=== PATIENT | female | born 1985 ===

== ENCOUNTER 2019-06-17 20:10 | Emergency (ER) | payer SELFPAY ==
[~2019-06-17] VITALS: Ht 162.5 cm; Wt 91.8 kg
--- NOTE | 2019-06-17 20:32 | ED GU-Female ---
General Stated Complaint: PREG 4-5 WKS - BLEEDING Source: patient Exam Limitations: no limitations History of Present Illness Date Seen by Provider: Jun 17, 2019 Time Seen by Provider: 20:31 Initial Comments To ER with reports of vaginal bleeding including clots starting today, she developed some abdominal cramping starting yesterday. She is at about 4-5 weeks . She was seen at [facility] today and had labs drawn, was told to come back on Friday for repeat blood draw. Timing/Duration: yesterday Severity/Quality: moderate Radiation: none Activities at Onset: none Associated Symptoms: denies symptoms Allergies and Home Medications Allergies Coded Allergies: No Known Drug Allergies (Unverified , 09/29/14) Home Medications No Active Prescriptions or Reported Meds Patient Home Medication List Home Medication List Reviewed: Yes Review of Systems Review of Systems Constitutional: see HPI EENTM: see HPI Respiratory: no symptoms reported Cardiovascular: no symptoms reported Genitourinary: no symptoms reported Musculoskeletal: no symptoms reported Skin: no symptoms reported Psychiatric/Neurological: No Symptoms Reported Endocrine: No Symptoms Reported Hematologic/Lymphatic: No Symptoms Reported Past Tfappkm-Yopsiq-Tmjujl Hx Patient Social History Recent Foreign Travel: No Contact w/Someone Who Travel: No Immunizations Up To Date Tetanus Booster (TDap): Unknown Date of Influenza Vaccine: Jul 04, 2014 Past Medical History Reproductive Disorders: No Female Reproductive Disorders: Denies Sexually Transmitted Disease: No HIV/AIDS: No Adverse Reaction/Blood Tranf: No Family Medical History Patient reports no known family medical history. Physical Exam Vital Signs Vital Signs - First Documented 06/17/19 20:26 Temp 36.8 Pulse 72 Resp 20 B/P (MAP) 147/93 (111) Pulse Ox 99 O2 Delivery Room Air Capillary Refill : Height, Weight, BMI Height: 5'4.00" Weight: 217lbs. oz. 98.055509mr; BMI Method: General Appearance: WD/WN, no apparent distress Respiratory: no respiratory distress, no accessory muscle use Gastrointestinal: normal bowel sounds, non tender, soft Extremities: normal range of motion, non-tender Neurologic/Psychiatric: alert, normal mood/affect, oriented x 3 Skin: normal color, warm/dry Progress/Results/Core Measures Suspected Sepsis SIRS Temperature: Pulse: Respiratory Rate: Laboratory Tests 06/17/19 20:40: White Blood Count 11.5H Blood Pressure / Mean: Laboratory Tests 06/17/19 20:40: Platelet Count 362 Results/Orders Lab Results Laboratory Tests Test 06/17/19 20:33 06/17/19 20:40 Range/Units Urine Color YELLOW Urine Clarity CLEAR Urine pH 7 5-9 Urine Specific [place] 1.015 L 1.016-1.022 Urine Protein 2+ H NEGATIVE Urine Glucose (UA) NEGATIVE NEGATIVE Urine Ketones NEGATIVE NEGATIVE Urine Nitrite NEGATIVE NEGATIVE Urine Bilirubin NEGATIVE NEGATIVE Urine Urobilinogen NORMAL NORMAL MG/DL Urine Leukocyte Esterase 1+ H NEGATIVE Urine RBC (Auto) 5+ H NEGATIVE Urine RBC 50-100 H /HPF Urine WBC 0-2 /HPF Urine Squamous Epithelial Cells 10-25 H /HPF Urine Crystals PRESENT H /LPF Urine Amorphous Sediment FEW ADAM PHOSPHATE H /LPF Urine Bacteria TRACE /HPF Urine Casts NONE /LPF Urine Mucus NEGATIVE /LPF Urine Culture Indicated NO White Blood Count 11.5 H 4.3-11.0 10^3/uL Red Blood Count 4.26 L 4.35-5.85 10^6/uL Hemoglobin 13.6 11.5-16.0 G/DL Hematocrit 39 35-52 % Mean Corpuscular Volume 92 80-99 FL Mean Corpuscular Hemoglobin 32 25-34 PG Mean Corpuscular Hemoglobin Concent 35 32-36 G/DL Red Cell Distribution Width 12.3 10.0-14.5 % Platelet Count 362 130-400 10^3/uL Mean Platelet Volume 9.2 7.4-10.4 FL Neutrophils (%) (Auto) 68 42-75 % Lymphocytes (%) (Auto) 22 12-44 % Monocytes (%) (Auto) 9 0-12 % Eosinophils (%) (Auto) 1 0-10 % Basophils (%) (Auto) 0 0-10 % Neutrophils # (Auto) 7.8 1.8-7.8 X 10^3 Lymphocytes # (Auto) 2.5 1.0-4.0 X 10^3 Monocytes # (Auto) 1.0 0.0-1.0 X 10^3 Eosinophils # (Auto) 0.1 0.0-0.3 10^3/uL Basophils # (Auto) 0.0 0.0-0.1 10^3/uL Human Chorionic Gonadotropin, Quant 1388 H <5 MIU/ML My Orders Orders - LALITA DC [employer]AC[employer] PROGRAMMER Hcg,Quantitative (9/26/19 20:30) Cbc With Automated Diff (06/17/19 20:30) Ua Culture If Indicated (06/17/19 20:30) Vital Signs/I&O 06/17/19 20:26 Temp 36.8 Pulse 72 Resp 20 B/P (MAP) 147/93 (111) Pulse Ox 99 O2 Delivery Room Air Capillary Refill : Departure Communication (Admissions) She already has an appointment to follow-up with [facility] on Friday, 48 hours from now to repeat an hCG level. Impression Primary Impression: Vaginal bleeding affecting early Additional Impression: Threatened miscarriage Disposition: HOME, SELF-CARE Condition: Stable Departure-Patient Inst. Decision time for Depature: 21:52 Referrals: NO,LOCAL PHYSICIAN (PCP/Family) Primary Care Physician Patient Instructions: Bleeding With (DC) Add. Discharge Instructions: 1. Return to ER for any concerns 2. Keep her appointment with [facility] on Friday to recheck hCG level. Scripts No Active Prescriptions or Reported Meds LALITA DC APRN Jun 17, 2019 20:32
--- NOTE | 2019-06-17 20:41 | NUR ---
Report given to SHAQUILLE Ocampo to assume care.
[2019-06-17 20:43] LABS: BILIRUBIN,URINE NEGATIVE (NEGATIVE); CLARITY,URINE CLEAR; COLOR,URINE YELLOW; GLUCOSE, URINE (UA) NEGATIVE (NEGATIVE); KETONES,URINE NEGATIVE (NEGATIVE); LEUKOCYTE ESTERASE ,URINE 1+ (NEGATIVE); NITRITE,URINE NEGATIVE (NEGATIVE); PH,URINE 7 (5-9); PROTEIN,URINE 2+ (NEGATIVE); UROBILINOGEN,URINE NORMAL (NORMAL)
[2019-06-17 20:51] LABS: BASOPHILS % (AUTO) 0 % (0-10); EOSINOPHILS # (AUTO) 0.1 10^3/uL (0.0-0.3); EOSINOPHILS % (AUTO) 1 % (0-10); HEMATOCRIT 39 % (35-52); HEMOGLOBIN 13.6 G/DL (11.5-16.0); LYMPHOCYTES # (AUTO) 2.5 X 10^3 (1.0-4.0); LYMPHOCYTES % (AUTO) 22 % (12-44); MEAN CORPUSCULAR HEMOGLOBIN 32 PG (25-34); MEAN CORPUSCULAR HGB CONC 35 G/DL (32-36); MEAN CORPUSCULAR VOLUME 92 FL (80-99); MEAN PLATELET VOLUME 9.2 FL (7.4-10.4); MONOCYTES % (AUTO) 9 % (0-12); NEUTROPHILS # (AUTO) 7.8 X 10^3 (1.8-7.8); NEUTROPHILS % (AUTO) 68 % (42-75); PLATELET COUNT 362 10^3/uL (130-400); RED CELL DISTRIBUTION WIDTH 12.3 % (10.0-14.5); WHITE BLOOD COUNT 11.5 10^3/uL (4.3-11.0)
[2019-06-17 21:00] LABS: AMORPHOUS SEDIMENT,UR FEW AMOR PHOSPHATE /LPF; BACTERIA,URINE TRACE /HPF; RBC,URINE 50-100 /HPF; WBC,URINE 0-2 /HPF
[2019-06-17 22:13] VITALS: BP 108/62
== END 2019-06-17 22:16 | disposition home or self-care (01) ==
LOC: EDUNIT# 20:10 → ER 20:12
DX: O20.0 Threatened abortion (principal); Z3A.01 Less than 8 weeks gestation of pregnancy
CPT/HCPCS: 36415; 81000; 84702; 85025; 99282

== ENCOUNTER → 2019-06-19 | Outpatient (CLI) | payer SELFPAY | LOC: LAB 12:52 | PROVIDERS: ATTEND Nurse Practitioner | DX: O20.8 Other hemorrhage in early pregnancy (principal); Z3A.00 Weeks of gestation of pregnancy not specified | CPT/HCPCS: 36415; 84702 ==

== ENCOUNTER 2020-01-01 05:42 | Emergency (ER) | payer BC ==
[~2020-01-01] VITALS: Ht 154 cm; Wt 86.1 kg
[2020-01-01 05:53] VITALS: BP 134/99
--- NOTE | 2020-01-01 06:00 | ED Upper Extremity ---
General Chief Complaint: Upper Extremity Stated Complaint: RT ARM PAIN Source: patient History of Present Illness Date Seen by Provider: Jan 01, 2020 Time Seen by Provider: 05:50 Initial Comments PT ARRIVES VIA POV FROM HOME C/O RIGHT SHOULDER PAIN STATES SHE WAS HAMMERING ALOT YESTERDAY, USING RIGHT ARM STATES SHE DID NOT HAVE ANY PAIN UNTIL A FEW HOURS LATER NO DIRECT TRAUMA NO PRIOR PROBLEMS WITH THIS SHOULDER NO PARESTHESIAS OR MOTOR DEFICITS PAIN WITH ANY MOVEMENT OF RIGHT ARM/SHOULDER NO OTHER AREAS OF PAIN NO RADIATION OF PAIN PT IS RIGHT HANDED TOOK 2 ASPIRIN AT 2200 AND AT 0500 LMP MID NOVEMBER, NORMAL. NO CONTROL PCP: KAT[facility] Allergies and Home Medications Allergies Coded Allergies: No Known Drug Allergies (Unverified , 09/29/14) Home Medications Cyclobenzaprine HCl 10 Mg Tablet, 10 MG PO Q8H PRN for SPASMS Prescribed by: LITA OCONNELL on 01/01/20601 Meloxicam 15 Mg Tablet, 15 MG PO DAILY Prescribed by: LITA OCONNELL on 01/01/20601 Patient Home Medication List Home Medication List Reviewed: Yes Review of Systems Constitutional: no symptoms reported Respiratory: no symptoms reported Cardiovascular: no symptoms reported : No LMP: Dec 05, 2019 Control/STD Prophylaxis: None Musculoskeletal: see HPI Skin: no symptoms reported Psychiatric/Neurological: No Symptoms Reported Past Xxmijoa-Rhlidm-Xzcwib Hx Past Med/Social Hx: Reviewed and Corrections made Patient Social History 2nd Hand Smoke Exposure: No Recent Foreign Travel: No Contact w/Someone Who Travel: No Immunizations Up To Date Tetanus Booster (TDap): Unknown Date of Influenza Vaccine: Jul 04, 2014 Past Medical History Surgeries: No Respiratory: No Cardiac: No Neurological: No Reproductive Disorders: No Female Reproductive Disorders: Denies Sexually Transmitted Disease: No HIV/AIDS: No Gastrointestinal: No Musculoskeletal: No Endocrine: No HEENT: No Cancer: No Psychosocial: No Integumentary: No Blood Disorders: No Adverse Reaction/Blood Tranf: No Family Medical History Patient reports no known family medical history. Physical Exam Vital Signs Vital Signs - First Documented 01/01/20 05:53 Temp 36.7 Pulse 74 Resp 18 B/P (MAP) 134/99 (111) Pulse Ox 99 O2 Delivery Room Air Capillary Refill : Height, Weight, BMI Height: 5'4.00" Weight: 217lbs. oz. 98.970562rv; 34.00 BMI Method: General Appearance: WD/WN, no apparent distress, other (SMILING, DOES NOT APPEAR TO BE IN ANY DISCOMFORT OR DISTRESS) Neck: normal inspection Cardiovascular: normal peripheral pulses, regular rate, rhythm, no murmur Respiratory: chest non-tender, normal breath sounds, no respiratory distress, no accessory muscle use Shoulder: no evidence of injury; No asymmetry; bone tenderness; No deformity, No ecchymosis; limited ROM, pain, soft tissue tenderness; No swelling Elbow/Forearm: normal inspection Wrist: Yes normal inspection Hand: normal inspection Neurologic/Tendon: normal sensation, normal motor functions, normal tendon functions Neurologic/Psychiatric: hvac services professional II-XII nml as tested, no motor/sensory deficits, alert, normal mood/affect, oriented x 3 Skin: normal color, warm/dry; No rash Procedures/Interventions Splinting and Joint Reduction : Arm Sling: Graham Progress/Results/Core Measures Results/Orders My Orders Orders - LITA OCONNELL DO Shoulder, Right, 3 Views (01/01/20 05:54) Vital Signs/I&O 01/01/20 05:53 Temp 36.7 Pulse 74 Resp 18 B/P (MAP) 134/99 (111) Pulse Ox 99 O2 Delivery Room Air Diagnostic Imaging Comments XRAYS RIGHT SHOULDER--NO ACUTE PROCESS, PENDING RADIOLOGIST REVIEW Reviewed: Reviewed by Me Departure Impression Primary Impression: Right shoulder strain Disposition: 01 HOME, SELF-CARE Condition: Stable Departure-Patient Inst. Referrals: NO,LOCAL PHYSICIAN (PCP/Family) Primary Care Physician Patient Instructions: How to Use a Shoulder Sling, Shoulder Sprain (DC) Add. Discharge Instructions: ALTERNATE ICE AND HEAT TO AREA AT 20 MINUTE INTERVALS WEAR SLING NEEDED FOR COMFORT FOLLOW UP WITH [facility] IN 1 WEEK IF NO BETTER All discharge instructions reviewed with patient and/or family. Voiced understanding. Scripts Cyclobenzaprine HCl (Cyclobenzaprine HCl) 10 Mg Tablet 10 MG PO Q8H PRN for SPASMS, #10 TAB 0 Refills Prov: LITA OCONNELL DO 01/01/20 Meloxicam (Mobic) 15 Mg Tablet 15 MG PO DAILY, #10 TAB Prov: LITA OCONNELL DO 01/01/20 LITA OCONNELL DO Jan 01, 2020 06:00
[2020-01-01] MEDS ORDERED: CYCL10TA9 PO (06:02)
[2020-01-01] MEDS ORDERED: MELO15TA14 PO (06:02)
--- NOTE | 2020-01-01 07:05 | Diagnostic Imaging Report ---
Indication: Right shoulder pain. Comparison: None. Discussion: Three views of the right shoulder were obtained. No acute fracture, dislocation, or other osseous abnormality identified. No significant degenerative disease. Alignment is anatomic. Soft tissues are unremarkable. Impression: 1. Negative right shoulder. Dictated by: Dictated on workstation # [id number]
== END 2020-01-01 06:22 | disposition home or self-care (01) ==
LOC: EDUNIT# 05:42 → ER 05:46
DX: S43.401A Unspecified sprain of right shoulder joint, initial encounter (principal); X50.3XXA Overexertion from repetitive movements, initial encounter
CPT/HCPCS: 73030

== ENCOUNTER 2021-08-27 00:12 | Emergency (ER) | payer BC ==
[~2021-08-27] VITALS: Ht 154 cm; Wt 86.1 kg
[~2021-08-27 00:12] MED LIST: CYCL10TA25 PO; MELO15TA14 PO
[2021-08-27] MEDS ORDERED: HYDR-700 (00:20)
[2021-08-27] MEDS ORDERED: ESCI-2 (00:20)
[2021-08-27] MEDS ORDERED: NS IV 1000 ML 1,000 ML IV ONE (00:30)
[2021-08-27 00:39] LABS: BILIRUBIN,URINE NEGATIVE (NEGATIVE); CLARITY,URINE CLEAR; COLOR,URINE YELLOW; GLUCOSE, URINE (UA) 1+ (NEGATIVE); KETONES,URINE 1+ (NEGATIVE); LEUKOCYTE ESTERASE ,URINE NEGATIVE (NEGATIVE); NITRITE,URINE NEGATIVE (NEGATIVE); PROTEIN,URINE TRACE (NEGATIVE)
--- NOTE | 2021-08-27 00:39 | ED Psychosocial ---
General Chief Complaint: Overdose Stated Complaint: OVERDOSE Nursing Triage Note: brought in by [facility] for motrin overdose. pt reports taking 30-75 200mg motrin tablets approx. 2315. pt reports feeling suicidial x1 month after breakup et. cervical cell ca dx. Source: patient Exam Limitations: no limitations (TAMMY SNYDER MD) History of Present Illness Date Seen by Provider: Aug 27, 2021 Time Seen by Provider: 00:15 Initial Comments Here by EMS with report of intentional overdose on ibuprofen. Patient does not know the exact amount but thinks it was about a half a bottle of the 150 tablet 200 mg ibuprofen. She states this was an attempt to kill herself. She has been feeling suicidal for the last month after a break-up with her boyfriend and had diagnosis of precancerous cells on the cervix. That was actually taking care of and is not necessarily a concern now but did start the depression. Does have some stomach upset but otherwise denies symptoms. She is okay with inpatient admission if indicated. She has not previously attempted suicide. Timing/Duration: just prior to arrival (Approximately 45 minutes ago (11:30 PM).) Severity: moderate, severe Associated Symptoms: ingestion, suicidal ideation (TAMMY SNYDER MD) Allergies and Home Medications Allergies Coded Allergies: No Known Drug Allergies (Unverified , 09/29/14) Patient Home Medication List Home Medication List Reviewed: Yes (TAMMY SNYDER MD) Cyclobenzaprine HCl (Cyclobenzaprine HCl) 10 Mg Tablet, 10 MG PO Q8H PRN for SPASMS Prescribed by: LITA OCONNELL on 01/01/20601 Escitalopram Oxalate (Escitalopram Oxalate) 10 Mg Tablet, (Reported) Entered as Reported by: CURT GAMBLE on 08/27/2119 Last Action: New Order Hydroxyzine HCl (Hydroxyzine HCl) 25 Mg Tablet, (Reported) Entered as Reported by: CURT GAMBLE on 08/27/2119 Last Action: New Order Meloxicam (Mobic) 15 Mg Tablet, 15 MG PO DAILY Prescribed by: LITA OCONNELL on 01/01/20601 Review of Systems Constitutional: see HPI; No chills, No fever EENTM: no symptoms reported Respiratory: No cough, No short of breath Cardiovascular: No chest pain, No palpitations Gastrointestinal: No nausea, No vomiting Genitourinary: no symptoms reported Musculoskeletal: no symptoms reported Skin: no symptoms reported Psychiatric/Neurological: Anxiety, Depressed, Emotional Problems (TAMMY SNYDER MD) All Other Systems Reviewed Negative Unless Noted: Yes (TAMMY SNYDER MD) Past Awyodvs-Vqsfyz-Sfsesq Hx Patient Social History Tobacco Use?: No Use of E-Cig and/or Vaping dev: No Substance use?: No Alcohol Use?: No Pt feels they are or have been: No (TAMMY SNYDER MD) Immunizations Up To Date Tetanus Booster (TDap): Unknown (TAMMY SNYDER MD) Past Medical History Surgery/Hospitalization HX: anx,dep, Surgeries: No Respiratory: No Cardiac: No Neurological: No Reproductive Disorders: No Female Reproductive Disorders: Denies Sexually Transmitted Disease: No HIV/AIDS: No Gastrointestinal: No Musculoskeletal: No Endocrine: No HEENT: No Cancer: No Psychosocial: No Nursing Suicide Risk Notes: brought in by [facility] for motrin overdose. pt reports taking 30-75 200mg motrin tablets approx. 2315. pt reports feeling suicidial x1 month after breakup et. cervical cell ca dx. Integumentary: No Blood Disorders: No Adverse Reaction/Blood Tranf: No (TAMMY SNYDER MD) Family Medical History Reviewed Nursing Family Hx (TAMMY SNYDER MD) Patient reports no known family medical history. No Pertinent Family Hx (TAMMY SNYDER MD) Physical Exam Vital Signs - First Documented 08/27/21 00:14 Temp 36.6 Pulse 88 Resp 16 B/P (MAP) 141/86 (104) Pulse Ox 99 O2 Delivery Room Air (BHAVIK JACK MD) Capillary Refill : Less Than 3 Seconds (TAMMY SNYDER MD) Height, Weight, BMI Height: 5'4.00" Weight: 217lbs. oz. 98.757323mv; 36.00 BMI Method: General Appearance: WD/WN, no apparent distress HEENT: PERRL/EOMI, pharynx normal Neck: full range of motion, supple Respiratory: lungs clear, normal breath sounds Cardiovascular: regular rate, rhythm, no murmur Gastrointestinal: non tender, soft Extremities: non-tender, normal inspection Neurologic/Psychiatric: alert, oriented x 3 Appearance/Memory: appropriate appearance, appropriate insight, neat Behavior/Eye Contact: cooperative, good eye contact, normal speech Thoughts/Hallucinations: normal thought pattern, no apparent hallucination Skin: normal color, warm/dry (TAMMY SNYDER MD) Progress/Results/Core Measures Results/Orders Lab Results Laboratory Tests Test 08/27/21 00:25 08/27/21 00:30 08/27/21 00:35 Range/Units White Blood Count 13.8 H 4.3-11.0 10^3/uL Red Blood Count 4.24 3.80-5.11 10^6/uL Hemoglobin 13.5 11.5-16.0 g/dL Hematocrit 39 35-52 % Mean Corpuscular Volume 92 80-99 fL Mean Corpuscular Hemoglobin 32 25-34 pg Mean Corpuscular Hemoglobin Concent 35 32-36 g/dL Red Cell Distribution Width 12.1 10.0-14.5 % Platelet Count 387 130-400 10^3/uL Mean Platelet Volume 8.9 L 9.0-12.2 fL Immature Granulocyte % (Auto) 0 % Neutrophils (%) (Auto) 84 H 42-75 % Lymphocytes (%) (Auto) 9 L 12-44 % Monocytes (%) (Auto) 6 0-12 % Eosinophils (%) (Auto) 0 0-10 % Basophils (%) (Auto) 0 0-10 % Neutrophils # (Auto) 11.6 H 1.8-7.8 10^3/uL Lymphocytes # (Auto) 1.3 1.0-4.0 10^3/uL Monocytes # (Auto) 0.8 0.0-1.0 10^3/uL Eosinophils # (Auto) 0.0 0.0-0.3 10^3/uL Basophils # (Auto) 0.0 0.0-0.1 10^3/uL Immature Granulocyte # (Auto) 0.1 0.0-0.1 10^3/uL Sodium Level 139 135-145 MMOL/L Potassium Level 3.3 L 3.6-5.0 MMOL/L Chloride Level 107 98-107 MMOL/L Carbon Dioxide Level 17 L 21-32 MMOL/L Anion Gap 15 H 5-14 MMOL/L Blood Urea Nitrogen 13 7-18 MG/DL Creatinine 0.96 0.60-1.30 MG/DL Estimat Glomerular Filtration Rate 67 BUN/Creatinine Ratio 14 Glucose Level 189 H 70-105 MG/DL Calcium Level 9.3 8.5-10.1 MG/DL Corrected Calcium 9.1 8.5-10.1 MG/DL Total Bilirubin 0.2 0.1-1.0 MG/DL Aspartate Amino Transf (AST/SGOT) 16 5-34 U/L Alanine Aminotransferase (ALT/SGPT) 27 0-55 U/L Alkaline Phosphatase 64 40-136 U/L Total Protein 7.1 6.4-8.2 GM/DL Albumin 4.2 3.2-4.5 GM/DL Salicylates Level < 5.0 L 5.0-20.0 MG/DL Acetaminophen Level < 10 L 10-30 UG/ML Serum Alcohol < 10 <10 MG/DL Urine Color YELLOW Urine Clarity CLEAR Urine pH 6.0 5-9 Urine Specific [place] >=1.030 1.016-1.022 Urine Protein TRACE H NEGATIVE Urine Glucose (UA) 1+ H NEGATIVE Urine Ketones 1+ H NEGATIVE Urine Nitrite NEGATIVE NEGATIVE Urine Bilirubin NEGATIVE NEGATIVE Urine Urobilinogen 0.2 < = 1.0 MG/DL Urine Leukocyte Esterase NEGATIVE NEGATIVE Urine RBC (Auto) 1+ H NEGATIVE Urine RBC 2-5 H /HPF Urine WBC 2-5 /HPF Urine Squamous Epithelial Cells 2-5 /HPF Urine Crystals NONE /LPF Urine Bacteria FEW H /HPF Urine Casts NONE /LPF Urine Mucus SMALL H /LPF Urine Culture Indicated YES Urine Test NEGATIVE NEGATIVE Urine Opiates Screen NEGATIVE NEGATIVE Urine Oxycodone Screen NEGATIVE NEGATIVE Urine Methadone Screen NEGATIVE NEGATIVE Urine Propoxyphene Screen NEGATIVE NEGATIVE Urine Barbiturates Screen NEGATIVE NEGATIVE Ur Tricyclic Antidepressants Screen NEGATIVE NEGATIVE Urine Phencyclidine Screen NEGATIVE NEGATIVE Urine Amphetamines Screen NEGATIVE NEGATIVE Urine Methamphetamines Screen NEGATIVE NEGATIVE Urine Benzodiazepines Screen NEGATIVE NEGATIVE Urine Cocaine Screen NEGATIVE NEGATIVE Urine Cannabinoids Screen NEGATIVE NEGATIVE SARS-CoV-2 RNA (RT-PCR) Not Detected Not Detecte (BHAVIK JACK MD) My Orders Orders - BHAVIK JACK MD Famotidine Injection (Pepcid Injection) (08/27/21 06:15) Ondansetron Injection (Zofran Injectio (08/27/21 06:30) (BHAVIK JACK MD) Medications Given in ED Current Medications Medications Dose Ordered Sig/Don Route Start Time Stop Time Status Last Admin Dose Admin Sodium Chloride 1,000 ml @ 0 mls/hr Q0M ONCE IV 08/27/21 00:30 08/27/21 00:31 DC 08/27/21 00:36 0 MLS/HR (BHAVIK JACK MD) Vital Signs/I&O 08/27/21 00:14 Temp 36.6 Pulse 88 Resp 16 B/P (MAP) 141/86 (104) Pulse Ox 99 O2 Delivery Room Air (BHAVIK JACK MD) Blood Pressure Mean: 104 Progress Progress Note : Progress Note Seen and evaluated. Screening protocol initiated. IV with normal saline 1 L bolus ordered. Poison control contacted. They are recommending 4 to 6-hour monitoring and toxic overdose would be 400 mg/kg. She has taken half of that. We will initiate screening at medical clearance in 4 hours. Monitor patient. 0415: Remains doing well. She is medically cleared from my standpoint. We will initiate mental health screening process. 0445: We will go ahead make sure that she is well-hydrated. LR 1 L bolus ordered. Monitor patient. 0530: Screening via video chat has been initiated. Monitor patient. (TAMMY SNYDER MD) Progress Note #1: Time: 06:15 Progress Note Care of this patient was assumed from Dr. Snyder at shift change. Screening h as been completed and they are recommending a safety plan. Pepcid is being given for GI protection. See discharge instructions. Progress Note #2: Time: 06:21 Progress Note We are awaiting a safety plan from the screener. In the meantime patient has noted nausea. I have ordered Zofran. Discharge instructions have been reviewed. Patient feels safe returning home and has no questions at this time. (BHAVIK JACK MD) Initial ECG Impression Date: Aug 27, 2021 Initial ECG Impression Time: 00:25 Initial ECG Rate: 84 Initial ECG Rhythm: Normal Sinus Initial ECG Impression: Normal Comment Sinus rhythm with normal axis. No evidence of ST elevation MD. No previous available for comparison. Interpreted by me. (TAMMY SNYDER MD) Departure Impression Primary Impression: Drug overdose Qualified Codes: T50.902A - Poisoning by unspecified drugs, medicaments and biological substances, intentional self-harm, initial encounter Additional Impression: Suicidal ideation Disposition: 01 HOME, SELF-CARE Condition: Stable Departure-Patient Inst. Referrals: NO,LOCAL PHYSICIAN (PCP/Family) Primary Care Physician Patient Instructions: Suicide Prevention Add. Discharge Instructions: Follow-up with your primary care provider soon as possible. Follow the safety plan as outlined by the behavioral health screener. If you have urgent mental health needs or are feeling suicidal, you may call the crisis line at [phone]), return to the emergency room, or call 911. Call with questions or concerns. Return to care if you have any worsening of physical symptoms as well. All discharge instructions reviewed with patient and/or family. Voiced understanding. TAMMY SNYDER MD Aug 27, 2021 00:39 BHAVIK JACK MD Aug 27, 2021 06:15
[2021-08-27 00:42] LABS: BASOPHILS % (AUTO) 0 % (0-10); EOSINOPHILS % (AUTO) 0 % (0-10); HEMATOCRIT 39 % (35-52); HEMOGLOBIN 13.5 g/dL (11.5-16.0); LYMPHOCYTES # (AUTO) 1.3 10^3/uL (1.0-4.0); LYMPHOCYTES % (AUTO) 9 % (12-44); MEAN CORPUSCULAR HEMOGLOBIN 32 pg (25-34); MEAN CORPUSCULAR HGB CONC 35 g/dL (32-36); MEAN CORPUSCULAR VOLUME 92 fL (80-99); MEAN PLATELET VOLUME 8.9 fL (9.0-12.2); MONOCYTES # (AUTO) 0.8 10^3/uL (0.0-1.0); MONOCYTES % (AUTO) 6 % (0-12); NEUTROPHILS # (AUTO) 11.6 10^3/uL (1.8-7.8); NEUTROPHILS % (AUTO) 84 % (42-75); PLATELET COUNT 387 10^3/uL (130-400); WHITE BLOOD COUNT 13.8 10^3/uL (4.3-11.0)
[2021-08-27 00:46] LABS: HCG,QUALITATIVE URINE NEGATIVE (NEGATIVE)
[2021-08-27 00:52] LABS: AMPHETAMINE SCREEN, URINE NEGATIVE (NEGATIVE); BACTERIA,URINE FEW /HPF; BARBITURATE SCREEN URINE NEGATIVE (NEGATIVE); BENZODIAZEPINES SCREEN URINE NEGATIVE (NEGATIVE); CANNABINOID SCREEN, URINE NEGATIVE (NEGATIVE); COCAINE SCREEN URINE NEGATIVE (NEGATIVE); METHADONE STAT NEGATIVE (NEGATIVE); METHAMPHETAMINE SCREEN URINE S NEGATIVE (NEGATIVE); OPIATE SCREEN URINE NEGATIVE (NEGATIVE); OXYCODONE STAT NEGATIVE (NEGATIVE); PROPOXYPHENE STAT NEGATIVE (NEGATIVE); TRICYCLIC ANTIDEPRESSANTS SCRE NEGATIVE (NEGATIVE)
[2021-08-27 01:02] LABS: CHLORIDE 107 MMOL/L (98-107); POTASSIUM 3.3 MMOL/L (3.6-5.0); SODIUM 139 MMOL/L (135-145)
[2021-08-27 01:03] LABS: ALBUMIN 4.2 GM/DL (3.2-4.5)
[2021-08-27 01:04] LABS: CALCIUM 9.3 MG/DL (8.5-10.1)
[2021-08-27 01:05] LABS: GLUCOSE 189 MG/DL (70-105); TOTAL PROTEIN 7.1 GM/DL (6.4-8.2)
[2021-08-27 01:06] LABS: CARBON DIOXIDE 17 MMOL/L (21-32)
[2021-08-27 01:07] LABS: BILIRUBIN,TOTAL 0.2 MG/DL (0.1-1.0)
[2021-08-27 01:09] LABS: ALKALINE PHOSPHATASE 64 U/L (40-136); CREATININE SERUM 0.96 MG/DL (0.60-1.30); GFR ESTIMATED 67
[2021-08-27 01:10] LABS: BUN/CREATININE RATIO 14
[2021-08-27 01:11] LABS: SALICYLATE < 5.0 MG/DL (5.0-20.0)
[2021-08-27 01:12] LABS: ALANINE AMINOTRANSFERASE 27 U/L (0-55)
[2021-08-27 01:13] LABS: ACETAMINOPHEN < 10 UG/ML (10-30)
[2021-08-27] MEDS ORDERED: LACTATED RINGERS 1,000 ML IV STA (04:43)
[2021-08-27] MEDS ORDERED: FAMOTIDINE 20MG/2ML IV (PEPCID) IVP ONE (06:15)
[2021-08-27] MEDS ORDERED: ONDANSETRON 4 MG/2 ML (SDV) Z0FRAN IVP ONE (06:30)
[2021-08-27 07:16] VITALS: BP 110/57
== END 2021-08-27 07:16 | disposition home or self-care (01) ==
LOC: EDUNIT# 00:12 → ER 00:13
DX: T39.312A Poisoning by propionic acid derivatives, intentional self-harm, initial encounter (principal); F41.9 Anxiety disorder, unspecified; F32.9 Major depressive disorder, single episode, unspecified; Z20.822 Contact with and (suspected) exposure to COVID-19; X83.8XXA Intentional self-harm by other specified means, initial encounter
CPT/HCPCS: 80053; 80306; 81000; 84703; 85025; 87088; 87636; 93005; 93041; 99284; G0480 ×3; 36415; 80320; 80329